=== PATIENT | male | born 1975 ===

== ENCOUNTER 2018-03-31 18:25 | Emergency (ER) | payer BC ==
--- NOTE | 2018-03-31 19:07 | UC ---
Respiratory Complaint HPI - HPI Summary HPI Summary: 42 y/o male presents to the urgent care c/o nasal congestion, yellowish nasal discharge, sinus pain and B/L conjunctivitis since 03/26/2018. Pt reports he travel to [facility] and was in a hotel when symptoms started. He woke up the next day w/ B/L eye redness and crusting discharge. He call went to an Urgent care and was Rx Polymyxin/tripethromprim opthlamic drops. He has been applying the drops. However his sinus congestion is worst w/ a lot of postnasal drip. His Rt eye seems it is getting better. Sinus apin is 4/10. Pt denies dizziness, visual disturbances, eye pain, photophobia, cough, SOB, chest pain, abdominal pain, N/V /D. - History of Current Complaint Chief Complaint: UCEye Stated Complaint: RESP Time Seen by Provider: 03/31/18 19:03 Hx Obtained From: Patient Onset/Duration: Gradual Onset, Lasting Days - 5 days, Still Present, Worse Since - today Timing: Constant Severity Initially: Mild Severity Currently: Moderate Pain Intensity: 4 Pain Scale Used: 0-10 Numeric Character: Cough: Nonproductive Aggravating Factors: Recumbent Position Alleviating Factors: OTC Meds, Other - Polymix/trimetroprim opthalmic drops for his conjunctivitis Associated Signs And Symptoms: Positive: URI, Nasal Congestion - green, Sinus Discomfort. Negative: Fever, Chills, Wheezing - Risk Factors Pulmonary Embolism Risk Factors: Negative Cardiac Risk Factors: Negative Pseudomonas Risk Factors: Negative Tuberculosis Risk Factors: Negative - Allergies/Home Medications Allergies/Adverse Reactions: Allergies Allergy/AdvReac Type Severity Reaction Status Date / Time No Known Allergies Allergy Verified 03/31/18 18:49 Home Medications: Home Medications Polymyx/Trimethoprim OPTH* [Polytrim OPHTH*] 1 drop BOTH EYES QID 03/31/18 [ History Confirmed 03/31/18] PMH/Surg Hx/FS Hx/Imm Hx Previously Healthy: Yes - Pt denies PMHX - Surgical History Surgical History: None - Family History Known Family History: Positive: Diabetes - Social History Occupation: Employed Full-time Lives: With Family Alcohol Use: None Substance Use Type: None Smoking Status (MU): Never Smoked Tobacco Review of Systems All Other Systems Reviewed And Are Negative: Yes Constitutional: Positive: Negative Skin: Positive: Negative Eyes: Positive: Drainage - yellowish, Eye Redness - b/L eye redness. Negative: Photophobia ENT: Positive: Nasal Discharge - green, Sinus Congestion, Sinus Pain/Tenderness , Other - PND Respiratory: Positive: Negative Cardiovascular: Positive: Negative Gastrointestinal: Positive: Negative Genitourinary: Positive: Negative Motor: Positive: Negative Neurovascular: Positive: Negative Musculoskeletal: Positive: Negative Neurological: Positive: Negative Psychological: Positive: Negative Is Patient Immunocompromised?: No Physical Exam - Summary Physical Exam Summary: Vital Signs Reviewed: Yes General: Well appearing, well nourished male in no apparent pain distress Eyes: Positive: B/L Conjunctiva Inflamed - Visual acuity: WNL,Visual jonhson: PERRLA, EOMI intact w/out limitation or complaint of pain. eyelashes clear. mild tearing and yellowish drainage observed. No ciliary flush. No chemosis, No photophobia. Normal fundoscopic exam; no proptosis, exophthalmos, nystagmus. ENT: Positive: Normal ENT inspection, Hearing grossly normal, Pharynx normal, Nasal congestion, Nasal drainage moderate w/ yellowish nasal discharge. + moderate PND, TMs normal - B/L external ear canal clear , TM's WNL. Negative: Tonsillar swelling, Tonsillar exudate Neck: Positive: Supple, Nontender, No Lymphadenopathy Respiratory: Positive: Chest nontender, Lungs clear, Normal breath sounds, No respiratory distress Cardiovascular: Positive: RRR, No Murmur, Pulses Normal, Brisk Capillary Refill Abdomen Description: Positive: Nontender, No Organomegaly, Soft. Negative: CVA Tenderness (R), CVA Tenderness (L) Bowel Sounds: Positive: Present Musculoskeletal: Positive: Strength Intact, ROM Intact, No Edema Neurological Exam: Normal Psychological Exam: Normal Skin Exam: Normal Triage Information Reviewed: Yes Vital Signs: Initial Vital Signs Temp 98.5 F 03/31/18 18:45 Pulse 77 03/31/18 18:45 Resp 16 03/31/18 18:45 BP 131/80 03/31/18 18:45 Pulse Ox 100 03/31/18 18:45 Diagnostic Evaluation - Laboratory O2 Sat by Pulse Oximetry: 100 Respiratory Course/Dx - Course Course Of Treatment: 42 y/o male presents to the urgent care c/o nasal congestion, yellowish nasal discharge, sinus pain and B/L conjunctivitis since 03/26/2018. Pt reports he travel to [facility] and was in a hotel when symptoms started. He woke up the next day w/ B/L eye redness and crusting discharge. He call went to an Urgent care and was Rx Polymyxin/tripethromprim opthlamic drops. He has been applying the drops. However his sinus congestion is worst w/ a lot of postnasal drip. His Rt eye seems it is getting better. Sinus apin is 4/ 10. Pt denies dizziness, visual disturbances, eye pain, photophobia, cough, SOB , chest pain, abdominal pain, N/V/D. Hx opbtained. Pt w/ B/L conjuntivitis and acute bacterial sinusitis on examination. Pt givenat the clinic first dose of Augmentin PO. Rx same medication and also Rx Flonase and givne instructions on how to help clear his sinuses. Pt advised to continue w/ same opthalmic drops. D /C instructions explained. Pt understood and agreed w/ plan of care. - Differential Dx/Diagnosis Differential Diagnosis/HQI/PQRI: Laryngitis, Sinusitis, Other - conjunctiivits, URI, pharyngitis, Provider Diagnosis: Conjunctivitis, acute, bilateral, Sinusitis, bacterial Discharge - Sign-Out/Discharge Documenting (check all that apply): Patient Departure - d/c home All imaging exams completed and their final reports reviewed: No Studies - Discharge Plan Condition: Stable Disposition: HOME Prescriptions: Amoxicillin/Clavulanate TAB* [Augmentin TAB 875*] 875 mg PO BID #19 tab Fluticasone NASAL SPRAY 50MCG* [Flonase NASAL SPRAY 50MCG*] 2 spray BOTH NARES DAILY #1 btl Patient Education Materials: Sinusitis (ED), Conjunctivitis (ED) Referrals: [facility] [Outside] - 3 Days Eren Khan MD [Medical Doctor] - 2 Days Additional Instructions: 1- Please increase fluid intake and rest. take full course of antibiotic to avoid resistance. First dose given at the clinic tonight 2-Use Flonase as directed to help drain fluid. Also buy saline drops to clear sinuses 3-continue using the Polymix/trimetro opht drops for your conjunctivitis. However if not improvement in 2 days please f/u w/ Float Nurse Dr Khan for further evaluation and treatment. Encourage hand washing, and wash your eyelashes w/ baby Jann shampoo as directed 4-Return to the clinic or PCP in 3 days if symptoms do not improve for further management and treatment - Billing Disposition and Condition Condition: STABLE Disposition: Home
[2018-03-31] MEDS ORDERED: Amoxicillin/Clavulanate TAB* 875 MG PO ONE (19:21)
== END 2018-03-31 19:35 | disposition home or self-care (01) ==
LOC: UCEAST 18:25
DX: J32.9 Chronic sinusitis, unspecified (principal); H10.33 Unspecified acute conjunctivitis, bilateral
CPT/HCPCS: 99202; A9270-GY; G0463